=== PATIENT | male | born 1960 | race Caucasian/White ===

== ENCOUNTER 2020-12-02 12:37 | Inpatient (IN) | payer OTHER ==
[~2020-12-02] VITALS: Ht 175.3 cm; Wt 66.5 kg
[2020-12-02] VITALS (12 sets, daily range): BP systolic 109–146; BP diastolic 69–86
--- NOTE | 2020-12-02 12:51 | NUR ---
ASSUMED CARE OF PATIENT. PATIENT BIB FIRE FROM [facility] FOR RIGHT SIDED ABD PAIN. PT ALSO REPORTS LOOSE STOOL X4 WEEKS. DR DINERO IN ROOM. VS STABLE. NO ACUTE DISTRESS NOTED. CALL LIGHT IN PLACE. WILL CONTINUE TO MONITOR.
[2020-12-02] MEDS ORDERED: CHLORDIAZEPOXIDE 10 MG CAPSULE PO PRN (13:00)
[2020-12-02] MEDS ORDERED: NICOTINE 14MG/24 HR PATCH.TD24 TD ONE (13:00)
[2020-12-02] MEDS ORDERED: MORPHINE SULFATE 4 MG/ML, 1ML ONE ×2 (13:10→14:34)
[2020-12-02] MEDS ORDERED: NICOTINE 14MG/24 HR PATCH.TD24 ONE (13:10)
[2020-12-02] MEDS: MORPHINE SULFATE 4 MG/ML, 1ML IVPush PRN ×2 (13:13→14:36)
[2020-12-02] MEDS ORDERED: OMNIPAQUE 350 MG/ML, 100ML BOTTLE ONE (13:15)
--- NOTE | 2020-12-02 13:19 | NUR ---
PT REPORTS HE USUALY DRINKS A PINT A DAY OF ALOCHOL BUT STOPPED ABOUT THREE WEEKS AGO. PT WENT TO CT. VS STABLE. NO ACUTE DISTRESS NOTED. WILL CONTINUE TO MONITOR.
--- NOTE | 2020-12-02 13:24 | NUR ---
PT IN CT. REPORT GIVEN TO RUEL HART
--- NOTE | 2020-12-02 13:28 | NUR ---
DISCUSSION WITH DR DINERO REGARDING LABS FROM [facility] AND REPEAT. PLAN FOR BLOOD PRODUCT. AWAITING RETURN FROM IMAGING.
[2020-12-02] MEDS ORDERED: PANTOPRAZOLE 80 MG in SODIUM CHLORIDE 0.9% 100 ML IV SCH (13:30)
[2020-12-02] MEDS ORDERED: PANTOPRAZOLE 80 MG in SODIUM CHLORIDE 0.9% 50 ML IVPB ONE (13:30)
--- NOTE | 2020-12-02 13:45 | NUR ---
REQUEST FOR MED SENT TO PHARMACY.
[2020-12-02 14:17] LABS: BASOPHILS % (AUTO) 1 % (0-1); EOSINOPHILS % (AUTO) 0 % (1-7); LYMPHOCYTES % (AUTO) 7 % (22-44); MEAN CORPUSCULAR HGB CONC 30.9 g/dL (33.2-36.2); MEAN PLATELET VOLUME 7.2 fL (7.4-10.4); MONOCYTES % (AUTO) 7 % (2-9); NEUTROPHILS % (AUTO) 85 % (42-75); PLATELET COUNT 431 x10^3/uL (130-400); RED BLOOD COUNT 2.35 x10^6/uL (4.38-5.82); RED CELL DISTRIBUTION WIDTH 18.8 % (9.4-14.8)
[2020-12-02 14:23] LABS: ANION GAP 6 mmol/L (5-15); CALCIUM 7.7 mg/dL (8.5-10.1); CHLORIDE 107 mmol/L (98-107)
[2020-12-02 14:27] LABS: ALANINE AMINOTRANSFERASE 11 U/L (12-78); ALKALINE PHOSPHATASE 107 U/L (45-117); BILIRUBIN,TOTAL 0.3 mg/dL (0.2-1.0); CREATININE 1.12 mg/dL (0.7-1.3); TOTAL PROTEIN 6.4 g/dL (6.4-8.2)
[2020-12-02] MEDS ORDERED: CHLORDIAZEPOXIDE 10 MG CAPSULE ONE ×2 (14:34→16:53)
[2020-12-02 14:50] LABS: MD MORPH REVIEW ONLY
[2020-12-02 14:51] LABS: ANISOCYTOSIS 1+
[2020-12-02 14:52] LABS: HYPOCHROMIA 1+; MICROCYTOSIS 1+; POLYCHROMASIA 1+
[2020-12-02 14:54] LABS: <PLATELET ESTIMATE> INCREASED; <PLT MORPHOLOGY> NORMAL PLT MORPH
[2020-12-02] MEDS ORDERED: ACETAMINOPHEN 325 MG TABLET PO PRN (15:00)
[2020-12-02] MEDS ORDERED: MELATONIN 5 MG TABLET PO PRN (15:00)
--- NOTE | 2020-12-02 15:14 | NUR ---
REQUEST FOR BLOOD SENT.
[2020-12-02] MEDS ORDERED: MOVIPREP POWDER 1 PREP KIT PO STA (15:19)
--- NOTE | 2020-12-02 15:57 | NUR ---
BLOOD TRANSFUSING AT 25ML PER HOUR SLOWLY FOR FIRST 15 MINUTES. NAD NOTED IN PT. PT AWARE OF ALERT RN IF ANY SIGNS OF REACTION OCCUR.
--- NOTE | 2020-12-02 16:06 | NUR ---
DR DOMINGUEZ AT BEDSIDE TO ASSESS PT.
--- NOTE | 2020-12-02 16:39 | NUR ---
FIRST ATTEMPT TO CALL REPORT.
[2020-12-02] MEDS: CHLORDIAZEPOXIDE 10 MG CAPSULE PO SCH ×2 (16:56→21:00)
--- NOTE | 2020-12-02 16:58 | NUR ---
IVF INFUSING AT TIME OF TRANSPORT.
[2020-12-02] MEDS: NICOTINE 21 MG/24 HR PATCH.TD24 TD SCH (17:00)
[2020-12-02] MEDS ORDERED: IRON DEXTRAN COMPLEX 25 MG in SODIUM CHLORIDE 0.9% 50 ML IV ONE (17:00)
[2020-12-02] MEDS ORDERED: IRON DEXTRAN COMPLEX IV ONE (17:45)
[2020-12-02] MEDS ORDERED: SODIUM CHLORIDE 0.9% IV ONE (17:45)
[2020-12-02] MEDS ORDERED: EPINEPHRINE 1 MG/ML, 1ML IM PRN (18:30)
[2020-12-02] MEDS: LORazepam 1MG TABLET PO PRN (20:49)
[2020-12-02] MEDS: PANTOPRAZOLE 80 MG in SODIUM CHLORIDE 0.9% 100 ML IV SCH (23:31)
[2020-12-03] MEDS ORDERED: SODIUM CHLORIDE 0.9% IV ONE (01:00)
[2020-12-03] MEDS ORDERED: IRON DEXTRAN COMPLEX IV ONE (01:00)
[2020-12-03 04:12] VITALS: BP 132/78
[2020-12-03 05:10] LABS: BASOPHILS % (AUTO) 1 % (0-1); EOSINOPHILS % (AUTO) 2 % (1-7); LYMPHOCYTES % (AUTO) 13 % (22-44); MEAN CORPUSCULAR HEMOGLOBIN 26.8 pg (27.5-34.5); MEAN CORPUSCULAR HGB CONC 32.7 g/dL (33.2-36.2); MEAN PLATELET VOLUME 7.5 fL (7.4-10.4); MONOCYTES % (AUTO) 10 % (2-9); NEUTROPHILS % (AUTO) 75 % (42-75); PLATELET COUNT 390 x10^3/uL (130-400); RED BLOOD COUNT 3.04 x10^6/uL (4.38-5.82); RED CELL DISTRIBUTION WIDTH 19.8 % (9.4-14.8)
[2020-12-03] MEDS: CHLORDIAZEPOXIDE 10 MG CAPSULE PO SCH ×4 (05:16→21:01)
[2020-12-03 05:20] LABS: ALBUMIN 1.8 g/dL (3.4-5.0); ANION GAP 7 mmol/L (5-15); CALCIUM 7.8 mg/dL (8.5-10.1); CHLORIDE 114 mmol/L (98-107)
[2020-12-03 05:22] LABS: MD NO
[2020-12-03 05:24] LABS: ALANINE AMINOTRANSFERASE 12 U/L (12-78); ALKALINE PHOSPHATASE 100 U/L (45-117); BILIRUBIN,TOTAL 0.8 mg/dL (0.2-1.0); CREATININE 1.02 mg/dL (0.7-1.3); TOTAL PROTEIN 5.8 g/dL (6.4-8.2)
[2020-12-03 07:10] VITALS: BP 133/72
[2020-12-03] MEDS ORDERED: CHLORHEXIDINE 15 ML UDC ONE (07:53)
[2020-12-03] MEDS ORDERED: PROPOFOL 50 ML ONE (07:59)
[2020-12-03] MEDS ORDERED: ONDANSETRON 2MG/ML, 2ML IVPush PRN (08:00)
[2020-12-03] MEDS ORDERED: FENTANYL PF 100 MCG/2ML IV PRN (08:00)
[2020-12-03] MEDS ORDERED: ACETAMINOPHEN 325 MG TABLET PO PRN (08:00)
[2020-12-03] MEDS ORDERED: OXYcodone 5 MG/5 ML ORAL.SOL UDC PO PRN (08:00)
[2020-12-03] MEDS: PANTOPRAZOLE 80 MG in SODIUM CHLORIDE 0.9% 100 ML IV SCH ×2 (10:12→21:41)
[2020-12-03 12:16] VITALS: BP 149/62
[2020-12-03] MEDS ORDERED: PANTOPRAZOLE 80 MG in SODIUM CHLORIDE 0.9% 100 ML IV SCH (13:30)
[2020-12-03] MEDS ORDERED: OMNIPAQUE 350 MG/ML, 75ML BOTTLE ONE (15:05)
[2020-12-03] MEDS: NICOTINE 21 MG/24 HR PATCH.TD24 TD SCH (16:38)
[2020-12-03 16:40] VITALS: BP 162/87
[2020-12-03] MEDS ORDERED: GADOTERATE 7.5 MMOL/15ML SYR ONE (18:39)
[2020-12-03] MEDS: ONDANSETRON ODT 4 MG PO PRN (19:21)
[2020-12-03 21:54] VITALS: BP 160/85
[2020-12-04] MEDS: LORazepam 1MG TABLET PO PRN (02:38)
[2020-12-04] MEDS: ONDANSETRON ODT 4 MG PO PRN (02:38)
[2020-12-04 02:42] VITALS: BP 155/80
[2020-12-04] MEDS: CHLORDIAZEPOXIDE 10 MG CAPSULE PO SCH ×4 (05:51→20:57)
[2020-12-04 08:46] VITALS: BP 161/94
[2020-12-04] MEDS: PANTOPRAZOLE 80 MG in SODIUM CHLORIDE 0.9% 100 ML IV SCH ×2 (09:55→19:58)
[2020-12-04] MEDS: ALBUMIN HUMAN 25% 100 ML IV SCH ×2 (12:25→18:00)
[2020-12-04 13:16] VITALS: BP 157/98
[2020-12-04] MEDS: NEOMYCIN SULFATE 500 MG TABLET PO SCH ×2 (13:58→15:21)
[2020-12-04] MEDS: metroNIDAZOLE 500 MG TABLET PO SCH ×2 (13:58→15:21)
[2020-12-04 16:51] VITALS: BP 153/90
[2020-12-04] MEDS: NICOTINE 21 MG/24 HR PATCH.TD24 TD SCH (18:00)
[2020-12-04 19:54] VITALS: BP 157/86
[2020-12-05] MEDS: NEOMYCIN SULFATE 500 MG TABLET PO SCH
[2020-12-05] MEDS: metroNIDAZOLE 500 MG TABLET PO SCH
[2020-12-05] MEDS: ALBUMIN HUMAN 25% 100 ML IV SCH ×2 (00:01→06:26)
[2020-12-05 00:11] VITALS: BP 140/85
[2020-12-05 03:36] VITALS: BP 149/89
[2020-12-05] MEDS: PANTOPRAZOLE 80 MG in SODIUM CHLORIDE 0.9% 100 ML IV SCH ×2 (05:53→15:33)
[2020-12-05] MEDS: CHLORDIAZEPOXIDE 10 MG CAPSULE PO SCH ×3 (06:26→15:34)
[2020-12-05 08:30] VITALS: BP 114/74
[2020-12-05] MEDS ORDERED: CHLORHEXIDINE 15 ML UDC ONE (14:06)
[2020-12-05] MEDS ORDERED: BUPIVACAINE/PF 0.5% ONE (14:24)
[2020-12-05] MEDS ORDERED: EPINEPHRINE 1 MG/ML, 1ML ONE (14:24)
[2020-12-05] MEDS ORDERED: CHLORHEXIDINE 15 ML UDC PO ONE (14:30)
[2020-12-05] MEDS ORDERED: MIDAZOLAM 1 MG/ML, 2ML ONE (15:12)
[2020-12-05] MEDS ORDERED: FENTANYL PF 250 MCG/5ML ONE (15:12)
[2020-12-05] MEDS ORDERED: DIPHENHYDRAMINE 50 MG/ML, 1ML IVPush PRN ×2 (15:30→23:30)
[2020-12-05] MEDS ORDERED: HYDROmorphone 1 MG/ML, 1ML INJ IVPush PRN (15:30)
[2020-12-05] MEDS ORDERED: HALOPERIDOL 5 MG/ML IV PRN (15:30)
[2020-12-05] MEDS ORDERED: LABETALOL 5MG/ML, 20ML IV PRN (15:30)
[2020-12-05] MEDS ORDERED: OXYcodone 5 MG/5 ML ORAL.SOL UDC PO PRN (15:30)
[2020-12-05] MEDS ORDERED: FENTANYL PF 100 MCG/2ML IV PRN (15:30)
[2020-12-05] MEDS ORDERED: PROMETHAZINE 25 MG/ML, 1ML IVPush PRN (15:30)
[2020-12-05] MEDS ORDERED: MEPERIDINE/PF 25MG/0.5ML IVPush PRN (15:30)
[2020-12-05] MEDS ORDERED: hydrALAzine 20 MG/ML, 1ML IV PRN (15:30)
[2020-12-05] MEDS ORDERED: CEFOTETAN 2 GM ONE ×2 (15:31)
[2020-12-05] MEDS ORDERED: HYDROmorphone 1 MG/ML, 1ML INJ ONE (18:16)
[2020-12-05] MEDS ORDERED: FENTANYL PF 100 MCG/2ML ONE (19:31)
[2020-12-05] MEDS ORDERED: NEOSTIGMINE 1 MG/ML, 10ML ONE (19:59)
[2020-12-05] MEDS ORDERED: CEFAZOLIN 1,000 MG ONE (19:59)
[2020-12-05] MEDS ORDERED: PROPOFOL 10 MG/ML, 20ML ONE (19:59)
[2020-12-05] MEDS ORDERED: SUCCINYLCHOLINE 20 MG/ML, 10ML ONE (19:59)
[2020-12-05] MEDS ORDERED: ONDANSETRON 2MG/ML, 2ML ONE (19:59)
[2020-12-05] MEDS ORDERED: GLYCOPYRROLATE 0.2MG/1ML, 5ML ONE (19:59)
[2020-12-05] MEDS ORDERED: ROCURONIUM 10MG/ML,5ML ONE (19:59)
[2020-12-05 23:11] VITALS: BP 128/90
[2020-12-05] MEDS ORDERED: DEXAMETHASONE 4 MG/ML, 1ML IVPush PRN (23:30)
[2020-12-05] MEDS ORDERED: ONDANSETRON 2MG/ML, 2ML IV PRN (23:30)
[2020-12-05] MEDS ORDERED: TRAZODONE 50MG TABLET PO PRN (23:30)
[2020-12-05] MEDS ORDERED: DIPHENHYDRAMINE 25 MG CAPSULE PO PRN (23:30)
[2020-12-05] MEDS ORDERED: LORazepam 1MG TABLET PO PRN (23:30)
[2020-12-05] MEDS ORDERED: HALOPERIDOL 5 MG/ML IVPush PRN (23:30)
[2020-12-05] MEDS ORDERED: SCOPOLAMINE PATCH, 1.5MG PATCH.TD72 TD PRN (23:30)
[2020-12-05] MEDS: ACETAMINOPHEN 500 MG TABLET PO SCH (23:30)
[2020-12-05] MEDS: NICOTINE 21 MG/24 HR PATCH.TD24 TD SCH (23:58)
[2020-12-06] MEDS ORDERED: LACTATED RINGERS 1,000 ML IVBOLUS ONE
[2020-12-06] MEDS: KETOROLAC 30 MG/1 ML IVPush SCH ×5 (00:54→23:40)
[2020-12-06] MEDS: PANTOPRAZOLE 80 MG in SODIUM CHLORIDE 0.9% 100 ML IV SCH ×3 (00:56→21:07)
[2020-12-06 02:40] VITALS: BP 129/76
[2020-12-06 03:40] LABS: ANION GAP 9 mmol/L (5-15); CALCIUM 8.1 mg/dL (8.5-10.1); CHLORIDE 111 mmol/L (98-107); CREATININE 1.25 mg/dL (0.7-1.3)
[2020-12-06 03:47] LABS: BASOPHILS % (AUTO) 0 % (0-1); EOSINOPHILS % (AUTO) 0 % (1-7); LYMPHOCYTES % (AUTO) 2 % (22-44); MD NO; MEAN CORPUSCULAR HGB CONC 30.5 g/dL (33.2-36.2); MEAN PLATELET VOLUME 8.2 fL (7.4-10.4); MONOCYTES % (AUTO) 3 % (2-9); NEUTROPHILS % (AUTO) 95 % (42-75); PLATELET COUNT 327 x10^3/uL (130-400); RED BLOOD COUNT 3.39 x10^6/uL (4.38-5.82); RED CELL DISTRIBUTION WIDTH 21.2 % (9.4-14.8)
[2020-12-06] MEDS: ACETAMINOPHEN 500 MG TABLET PO SCH ×4 (05:30→23:30)
[2020-12-06] MEDS: LACTATED RINGERS 1,000 ML IV SCH ×2 (05:33→16:35)
[2020-12-06 06:59] VITALS: BP 147/87
[2020-12-06] MEDS ORDERED: ENOXAPARIN 40 MG/0.4 ML SQ SCH (09:00)
[2020-12-06] MEDS ORDERED: TPN PER PHARMACY MC SCH (10:00)
[2020-12-06] MEDS ORDERED: ACETAMINOPHEN 650 MG SUPP PR PRN (10:00)
[2020-12-06] MEDS ORDERED: LACTATED RINGERS 1,000 ML IV ONE (10:00)
[2020-12-06] MEDS ORDERED: MAGNESIUM SULFATE PMX 2GM/50ML 50 ML IV ONE (10:00)
[2020-12-06] MEDS ORDERED: ALBUMIN HUMAN 25% 100 ML IV SCH ×2 (10:00)
[2020-12-06 10:10] LABS: PREALBUMIN 4.9 mg/dL (20.0-40.0)
[2020-12-06 13:34] VITALS: BP 137/93
[2020-12-06] MEDS ORDERED: AMINO ACID 15% IV SCH (17:00)
[2020-12-06] MEDS ORDERED: [UNRECOGNIZED DRUG - OTHER] IV SCH (17:00)
[2020-12-06] MEDS ORDERED: FAT EMUL IV SCH (17:00)
[2020-12-06] MEDS ORDERED: DEXTROSE 70% IV SCH (17:00)
[2020-12-06] MEDS ORDERED: DEXTROSE 50%, 50ML SYRINGE IVPush PRN (17:00)
[2020-12-06] MEDS ORDERED: SMOF TPN IV SCH (17:00)
[2020-12-06] MEDS ORDERED: DEXTROSE 10% 500 ML IV PRN (17:00)
[2020-12-06 19:45] VITALS: BP 118/85
[2020-12-06] MEDS: INSULIN REGULAR LOW DOSE Q6H X 48HRS SQ-INSULIN SCH (21:00)
[2020-12-07] VITALS (7 sets, daily range): BP systolic 105–134; BP diastolic 71–84
[2020-12-07] MEDS: NICOTINE 21 MG/24 HR PATCH.TD24 TD SCH (00:23)
[2020-12-07] MEDS: LACTATED RINGERS 1,000 ML IV SCH ×3 (00:25→23:15)
[2020-12-07] MEDS: INSULIN REGULAR LOW DOSE Q6H X 48HRS SQ-INSULIN SCH ×4 (03:00→20:19)
[2020-12-07 04:55] LABS: BASOPHILS % (AUTO) 1 % (0-1); EOSINOPHILS % (AUTO) 1 % (1-7); LYMPHOCYTES % (AUTO) 7 % (22-44); MEAN CORPUSCULAR HEMOGLOBIN 26.9 pg (27.5-34.5); MEAN CORPUSCULAR HGB CONC 31.5 g/dL (33.2-36.2); MEAN PLATELET VOLUME 8.6 fL (7.4-10.4); MONOCYTES % (AUTO) 6 % (2-9); NEUTROPHILS % (AUTO) 85 % (42-75); PLATELET COUNT 226 x10^3/uL (130-400); RED BLOOD COUNT 2.05 x10^6/uL (4.38-5.82); RED CELL DISTRIBUTION WIDTH 21.8 % (9.4-14.8)
[2020-12-07 05:02] LABS: MD NO
[2020-12-07] MEDS: ACETAMINOPHEN 500 MG TABLET PO SCH ×4 (05:30→23:15)
[2020-12-07] MEDS: KETOROLAC 30 MG/1 ML IVPush SCH ×4 (05:42→23:14)
[2020-12-07] MEDS: PANTOPRAZOLE 80 MG in SODIUM CHLORIDE 0.9% 100 ML IV SCH ×2 (06:31→18:14)
[2020-12-07 06:38] LABS: BASOPHILS % (AUTO) 0 % (0-1); EOSINOPHILS % (AUTO) 1 % (1-7); LYMPHOCYTES % (AUTO) 8 % (22-44); MEAN CORPUSCULAR HEMOGLOBIN 26.7 pg (27.5-34.5); MEAN CORPUSCULAR HGB CONC 31.7 g/dL (33.2-36.2); MEAN PLATELET VOLUME 7.7 fL (7.4-10.4); MONOCYTES % (AUTO) 8 % (2-9); NEUTROPHILS % (AUTO) 84 % (42-75); PLATELET COUNT 268 x10^3/uL (130-400); RED BLOOD COUNT 2.58 x10^6/uL (4.38-5.82)
[2020-12-07 06:43] LABS: MD NO
[2020-12-07 06:51] LABS: ALANINE AMINOTRANSFERASE 15 U/L (12-78); ALBUMIN 1.9 g/dL (3.4-5.0); ANION GAP 5 mmol/L (5-15); CALCIUM 7.9 mg/dL (8.5-10.1); CHLORIDE 112 mmol/L (98-107); CREATININE 1.72 mg/dL (0.7-1.3)
[2020-12-07 06:53] LABS: ALKALINE PHOSPHATASE 58 U/L (45-117); BILIRUBIN,TOTAL 0.2 mg/dL (0.2-1.0); TOTAL PROTEIN 4.9 g/dL (6.4-8.2)
[2020-12-07] MEDS ORDERED: NS + 20MEQ KCL 1,000 ML IV SCH (14:00)
[2020-12-07] MEDS ORDERED: FAT EMUL IV SCH (18:00)
[2020-12-07] MEDS ORDERED: SMOF TPN IV SCH (18:00)
[2020-12-07] MEDS ORDERED: AMINO ACID 15% IV SCH (18:00)
[2020-12-07] MEDS ORDERED: [UNRECOGNIZED DRUG - OTHER] IV SCH (18:00)
[2020-12-07] MEDS ORDERED: DEXTROSE 70% IV SCH (18:00)
[2020-12-08] MEDS: NICOTINE 21 MG/24 HR PATCH.TD24 TD SCH (00:42)
[2020-12-08] MEDS: INSULIN REGULAR LOW DOSE Q6H X 48HRS SQ-INSULIN SCH ×3 (03:00→15:00)
[2020-12-08 03:05] VITALS: BP 143/87
[2020-12-08] MEDS: PANTOPRAZOLE 80 MG in SODIUM CHLORIDE 0.9% 100 ML IV SCH (04:08)
[2020-12-08] MEDS: ACETAMINOPHEN 500 MG TABLET PO SCH ×4 (05:30→23:30)
[2020-12-08] MEDS: KETOROLAC 30 MG/1 ML IVPush SCH ×3 (05:30→16:59)
[2020-12-08 06:12] LABS: BASOPHILS % (AUTO) 0 % (0-1); EOSINOPHILS % (AUTO) 2 % (1-7); LYMPHOCYTES % (AUTO) 8 % (22-44); MEAN CORPUSCULAR HEMOGLOBIN 26.9 pg (27.5-34.5); MEAN CORPUSCULAR HGB CONC 32.1 g/dL (33.2-36.2); MEAN PLATELET VOLUME 9.1 fL (7.4-10.4); MONOCYTES % (AUTO) 7 % (2-9); NEUTROPHILS % (AUTO) 83 % (42-75); PLATELET COUNT 236 x10^3/uL (130-400); RED BLOOD COUNT 2.69 x10^6/uL (4.38-5.82); RED CELL DISTRIBUTION WIDTH 21.2 % (9.4-14.8)
[2020-12-08 06:21] LABS: ANION GAP 2 mmol/L (5-15); CALCIUM 7.8 mg/dL (8.5-10.1); CHLORIDE 113 mmol/L (98-107); CREATININE 1.42 mg/dL (0.7-1.3); MD NO
[2020-12-08 07:36] VITALS: BP 147/90
[2020-12-08] MEDS: IRON SUCROSE COMPLEX 100MG/5ML IV SCH (11:03)
[2020-12-08 13:46] VITALS: BP 144/82
[2020-12-08] MEDS: LORazepam 2 MG/ML, 1ML IVPush PRN (14:26)
[2020-12-08 15:42] LABS: BASOPHILS % (AUTO) 1 % (0-1); EOSINOPHILS % (AUTO) 1 % (1-7); LYMPHOCYTES % (AUTO) 7 % (22-44); MEAN CORPUSCULAR HEMOGLOBIN 30.1 pg (27.5-34.5); MEAN CORPUSCULAR HGB CONC 31.4 g/dL (33.2-36.2); MEAN PLATELET VOLUME 9.5 fL (7.4-10.4); MONOCYTES % (AUTO) 6 % (2-9); NEUTROPHILS % (AUTO) 85 % (42-75); PLATELET COUNT 235 x10^3/uL (130-400); RED BLOOD COUNT 2.52 x10^6/uL (4.38-5.82); RED CELL DISTRIBUTION WIDTH 22.6 % (9.4-14.8)
[2020-12-08 15:43] LABS: MD NO
[2020-12-08] MEDS ORDERED: SMOF TPN IV SCH (17:00)
[2020-12-08] MEDS ORDERED: FAT EMUL IV SCH (17:00)
[2020-12-08] MEDS ORDERED: [UNRECOGNIZED DRUG - OTHER] IV SCH (17:00)
[2020-12-08] MEDS ORDERED: DEXTROSE 70% IV SCH (17:00)
[2020-12-08] MEDS ORDERED: AMINO ACID 15% IV SCH (17:00)
[2020-12-08] MEDS: FILTER, DISP 1.2 MICRON FOR TPN/PVN IV PRN (17:15)
[2020-12-08 19:35] VITALS: BP 165/88
[2020-12-08] MEDS: PANTOPRAZOLE 40 MG IV IVPush SCH (20:46)
[2020-12-09 00:12] VITALS: BP 146/85
[2020-12-09] MEDS: NICOTINE 21 MG/24 HR PATCH.TD24 TD SCH (00:30)
[2020-12-09] MEDS: LORazepam 2 MG/ML, 1ML IVPush PRN ×2 (00:30→19:09)
[2020-12-09] MEDS: ACETAMINOPHEN 500 MG TABLET PO SCH (05:30)
[2020-12-09 06:07] LABS: BASOPHILS % (AUTO) 0 % (0-1); EOSINOPHILS % (AUTO) 1 % (1-7); LYMPHOCYTES % (AUTO) 7 % (22-44); MEAN CORPUSCULAR HEMOGLOBIN 26.5 pg (27.5-34.5); MEAN CORPUSCULAR HGB CONC 31.7 g/dL (33.2-36.2); MEAN PLATELET VOLUME 8.9 fL (7.4-10.4); MONOCYTES % (AUTO) 5 % (2-9); NEUTROPHILS % (AUTO) 87 % (42-75); PLATELET COUNT 274 x10^3/uL (130-400); RED BLOOD COUNT 3.13 x10^6/uL (4.38-5.82); RED CELL DISTRIBUTION WIDTH 22.3 % (9.4-14.8)
[2020-12-09 06:15] LABS: ALANINE AMINOTRANSFERASE 14 U/L (12-78); ANION GAP 2 mmol/L (5-15); CALCIUM 8.6 mg/dL (8.5-10.1); CHLORIDE 111 mmol/L (98-107); CREATININE 1.19 mg/dL (0.7-1.3)
[2020-12-09 06:17] LABS: ALKALINE PHOSPHATASE 66 U/L (45-117); BILIRUBIN,TOTAL 0.2 mg/dL (0.2-1.0); TOTAL PROTEIN 5.4 g/dL (6.4-8.2)
[2020-12-09 06:46] LABS: MD SCAN
[2020-12-09 07:13] VITALS: BP 142/94
[2020-12-09] MEDS: INSULIN REGULAR LOW DOSE QDAY SQ-INSULIN SCH (07:21)
[2020-12-09] MEDS: PANTOPRAZOLE 40 MG IV IVPush SCH ×2 (08:25→21:06)
[2020-12-09] MEDS: IRON SUCROSE COMPLEX 100MG/5ML IV SCH (08:35)
[2020-12-09 12:23] VITALS: BP 134/84
[2020-12-09] MEDS ORDERED: CEFTRIAXONE 1,000 MG IM SCH (12:30)
[2020-12-09] MEDS: METRONIDAZOLE PMX 500MG/100ML 100 ML IV SCH ×2 (13:05→21:06)
[2020-12-09] MEDS: LACTATED RINGERS 1,000 ML IV SCH (13:07)
[2020-12-09] MEDS: CEFTRIAXONE 1,000 MG in DEXTROSE 5% 50 ML IVPB SCH (15:12)
[2020-12-09] MEDS ORDERED: [UNRECOGNIZED DRUG - OTHER] IV SCH (17:00)
[2020-12-09] MEDS ORDERED: AMINO ACID 15% IV SCH (17:00)
[2020-12-09] MEDS ORDERED: FAT EMUL IV SCH (17:00)
[2020-12-09] MEDS ORDERED: DEXTROSE 70% IV SCH (17:00)
[2020-12-09] MEDS ORDERED: SMOF TPN IV SCH (17:00)
[2020-12-09] MEDS: FILTER, DISP 1.2 MICRON FOR TPN/PVN IV PRN (17:21)
[2020-12-09 19:01] VITALS: BP 157/88
[2020-12-10] MEDS: NICOTINE 21 MG/24 HR PATCH.TD24 TD SCH (00:24)
[2020-12-10 00:54] VITALS: BP 140/88
[2020-12-10] MEDS: METRONIDAZOLE PMX 500MG/100ML 100 ML IV SCH ×3 (06:00→20:11)
[2020-12-10 06:16] LABS: ALANINE AMINOTRANSFERASE 13 U/L (12-78); ALBUMIN 1.6 g/dL (3.4-5.0); ANION GAP 3 mmol/L (5-15); CALCIUM 7.9 mg/dL (8.5-10.1); CHLORIDE 110 mmol/L (98-107)
[2020-12-10 06:22] LABS: ALKALINE PHOSPHATASE 71 U/L (45-117); BILIRUBIN,TOTAL 0.2 mg/dL (0.2-1.0)
[2020-12-10 06:23] LABS: MEAN CORPUSCULAR HEMOGLOBIN 26.4 pg (27.5-34.5); MEAN CORPUSCULAR HGB CONC 31.3 g/dL (33.2-36.2); MEAN PLATELET VOLUME 9.2 fL (7.4-10.4); PLATELET COUNT 277 x10^3/uL (130-400); RED BLOOD COUNT 2.93 x10^6/uL (4.38-5.82); RED CELL DISTRIBUTION WIDTH 22.8 % (9.4-14.8)
[2020-12-10 06:49] LABS: MD YES
[2020-12-10 06:50] LABS: BAND#(MANUAL) 0.81 x10^3/uL; BANDS%(MANUAL) 4 % (0-7); EOS% (MANUAL) 1 % (1-7); LYMPH#(MANUAL) 1.21 x10^3/uL (1-3.4); LYMPHS% (MANUAL) 6 % (22-44); MONOS#(MANUAL) 0.81 x10^3/uL (0.3-2.7); MONOS% (MANUAL) 4 % (2-9); SEG#(MANUAL) 17.17 x10^3/uL (1.8-6.8); SEGS% (MANUAL) 85 % (42-75)
[2020-12-10 06:51] LABS: <PLATELET ESTIMATE> ADEQUATE; <PLT MORPHOLOGY> NORMAL PLT MORPH; OVALOCYTES 1+
[2020-12-10] MEDS: INSULIN REGULAR LOW DOSE QDAY SQ-INSULIN SCH (07:29)
[2020-12-10 07:48] VITALS: BP 126/86
[2020-12-10] MEDS ORDERED: ACETAMINOPHEN 650 MG SUPP PR PRN (09:00)
[2020-12-10] MEDS: PANTOPRAZOLE 40 MG IV IVPush SCH ×2 (09:51→20:11)
[2020-12-10] MEDS: IRON SUCROSE COMPLEX 100MG/5ML IV SCH (09:51)
[2020-12-10] MEDS: ENOXAPARIN 40 MG/0.4 ML SQ SCH (09:52)
[2020-12-10] MEDS ORDERED: OMNIPAQUE 350 MG/ML, 100ML BOTTLE ONE ×2 (10:24→10:26)
[2020-12-10] MEDS: FERROUS SULFATE 325 MG TABLET PO SCH (12:00)
[2020-12-10 14:00] VITALS: BP 134/92
[2020-12-10] MEDS: CEFTRIAXONE 1,000 MG in DEXTROSE 5% 50 ML IVPB SCH (15:56)
[2020-12-10] MEDS ORDERED: AMINO ACID 15% IV SCH (17:00)
[2020-12-10] MEDS ORDERED: FAT EMUL IV SCH (17:00)
[2020-12-10] MEDS ORDERED: SMOF TPN IV SCH (17:00)
[2020-12-10] MEDS ORDERED: DEXTROSE 70% IV SCH (17:00)
[2020-12-10] MEDS ORDERED: [UNRECOGNIZED DRUG - OTHER] IV SCH (17:00)
[2020-12-10] MEDS ORDERED: MORPHINE SULFATE 4 MG/ML, 1ML IV PRN (18:30)
[2020-12-10] MEDS: HYDROcodone/APAP 5/325 TABLET PO PRN (18:34)
[2020-12-10 19:03] VITALS: BP 144/87
[2020-12-10 19:16] LABS: CLOSTRIDIUM DIFFICILE ANTIGEN NEGATIVE; CLOSTRIDIUM DIFFICILE TOXIN NEGATIVE (Negative)
[2020-12-11] MEDS: NICOTINE 21 MG/24 HR PATCH.TD24 TD SCH ×2 (01:01→23:13)
[2020-12-11 01:55] VITALS: BP 150/82
[2020-12-11] MEDS: METRONIDAZOLE PMX 500MG/100ML 100 ML IV SCH ×3 (04:31→20:29)
[2020-12-11 04:51] LABS: MEAN CORPUSCULAR HEMOGLOBIN 26.7 pg (27.5-34.5); MEAN CORPUSCULAR HGB CONC 31.5 g/dL (33.2-36.2); MEAN PLATELET VOLUME 9.5 fL (7.4-10.4); PLATELET COUNT 246 x10^3/uL (130-400); RED BLOOD COUNT 2.98 x10^6/uL (4.38-5.82); RED CELL DISTRIBUTION WIDTH 22.8 % (9.4-14.8)
[2020-12-11 05:04] LABS: ALANINE AMINOTRANSFERASE 13 U/L (12-78); ALBUMIN 1.7 g/dL (3.4-5.0); ANION GAP 2 mmol/L (5-15); CALCIUM 8.2 mg/dL (8.5-10.1); CHLORIDE 108 mmol/L (98-107); CREATININE 0.85 mg/dL (0.7-1.3)
[2020-12-11 05:11] LABS: ALKALINE PHOSPHATASE 74 U/L (45-117); BILIRUBIN,TOTAL 0.1 mg/dL (0.2-1.0); PREALBUMIN 8.2 mg/dL (20.0-40.0); TOTAL PROTEIN 5.4 g/dL (6.4-8.2); TRIGLYCERIDES 40 mg/dL (50-200)
[2020-12-11 05:48] LABS: MD YES
[2020-12-11 05:50] LABS: LYMPH#(MANUAL) 0.52 x10^3/uL (1-3.4); LYMPHS% (MANUAL) 3 % (22-44); MONOS#(MANUAL) 1.56 x10^3/uL (0.3-2.7); MONOS% (MANUAL) 9 % (2-9); SEG#(MANUAL) 15.22 x10^3/uL (1.8-6.8); SEGS% (MANUAL) 88 % (42-75)
[2020-12-11 05:51] LABS: OVALOCYTES 1+
[2020-12-11 05:52] LABS: <PLATELET ESTIMATE> ADEQUATE; <PLT MORPHOLOGY> NORMAL PLT MORPH; ANISOCYTOSIS 1+; HYPOCHROMIA 1+
[2020-12-11 06:36] VITALS: BP 145/87
[2020-12-11] MEDS: INSULIN REGULAR LOW DOSE QDAY SQ-INSULIN SCH (07:24)
[2020-12-11] MEDS: PANTOPRAZOLE 40 MG IV IVPush SCH ×2 (10:12→20:29)
[2020-12-11] MEDS: ENOXAPARIN 40 MG/0.4 ML SQ SCH (10:18)
[2020-12-11] MEDS ORDERED: MAGNESIUM SULFATE PMX 2GM/50ML 50 ML IV ONE (10:30)
[2020-12-11 12:26] VITALS: BP 156/84
[2020-12-11] MEDS: HYDROcodone/APAP 5/325 TABLET PO PRN ×2 (14:35→15:59)
[2020-12-11] MEDS: CEFTRIAXONE 1,000 MG in DEXTROSE 5% 50 ML IVPB SCH (15:50)
[2020-12-11] MEDS ORDERED: [UNRECOGNIZED DRUG - OTHER] IV SCH (17:00)
[2020-12-11] MEDS ORDERED: AMINO ACID 15% IV SCH (17:00)
[2020-12-11] MEDS ORDERED: SMOF TPN IV SCH (17:00)
[2020-12-11] MEDS ORDERED: DEXTROSE 70% IV SCH (17:00)
[2020-12-11] MEDS ORDERED: FAT EMUL IV SCH (17:00)
[2020-12-11 18:39] VITALS: BP 136/87
[2020-12-12 01:35] VITALS: BP 123/81
[2020-12-12] MEDS: LACTATED RINGERS 1,000 ML IV SCH (04:20)
[2020-12-12 04:26] LABS: MEAN CORPUSCULAR HEMOGLOBIN 27.1 pg (27.5-34.5); MEAN CORPUSCULAR HGB CONC 31.8 g/dL (33.2-36.2); MEAN PLATELET VOLUME 9.4 fL (7.4-10.4); PLATELET COUNT 266 x10^3/uL (130-400); RED CELL DISTRIBUTION WIDTH 23.5 % (9.4-14.8)
[2020-12-12 04:36] LABS: ALANINE AMINOTRANSFERASE 9 U/L (12-78); ALBUMIN 1.7 g/dL (3.4-5.0); ANION GAP 1 mmol/L (5-15); CALCIUM 7.9 mg/dL (8.5-10.1); CHLORIDE 108 mmol/L (98-107); CREATININE 0.74 mg/dL (0.7-1.3)
[2020-12-12 04:38] LABS: ALKALINE PHOSPHATASE 65 U/L (45-117); BILIRUBIN,TOTAL 0.1 mg/dL (0.2-1.0); TOTAL PROTEIN 5.3 g/dL (6.4-8.2)
[2020-12-12 04:56] LABS: BAND#(MANUAL) 0.21 x10^3/uL; BANDS%(MANUAL) 2 % (0-7); EOS#(MANUAL) 0.21 x10^3/uL (0.0-0.4); EOS% (MANUAL) 2 % (1-7); LYMPH#(MANUAL) 0.93 x10^3/uL (1-3.4); LYMPHS% (MANUAL) 9 % (22-44); MD YES; MONOS#(MANUAL) 0.62 x10^3/uL (0.3-2.7); MONOS% (MANUAL) 6 % (2-9); MYELOCYTES% (MANUAL) 1 % (0-0); SEG#(MANUAL) 8.24 x10^3/uL (1.8-6.8); SEGS% (MANUAL) 80 % (42-75)
[2020-12-12 04:57] LABS: ANISOCYTOSIS 1+; MICROCYTOSIS 1+; OVALOCYTES 1+; PMNS WITH VACUOLES 1+
[2020-12-12 04:58] LABS: <PLATELET ESTIMATE> ADEQUATE; <PLT MORPHOLOGY> NORMAL PLT MORPH
[2020-12-12] MEDS: METRONIDAZOLE PMX 500MG/100ML 100 ML IV SCH ×3 (05:07→21:13)
[2020-12-12 07:04] VITALS: BP 142/93
[2020-12-12] MEDS: HYDROcodone/APAP 5/325 TABLET PO PRN ×2 (07:29→13:06)
[2020-12-12] MEDS: INSULIN REGULAR LOW DOSE QDAY SQ-INSULIN SCH (07:30)
[2020-12-12] MEDS: PANTOPRAZOLE 40 MG IV IVPush SCH (08:40)
[2020-12-12] MEDS: FERROUS SULFATE 325 MG TABLET PO SCH (08:41)
[2020-12-12] MEDS: ENOXAPARIN 40 MG/0.4 ML SQ SCH (08:53)
[2020-12-12 13:18] VITALS: BP 134/81
[2020-12-12] MEDS: CEFTRIAXONE 1,000 MG in DEXTROSE 5% 50 ML IVPB SCH (16:24)
[2020-12-12] MEDS ORDERED: [UNRECOGNIZED DRUG - OTHER] IV SCH (17:00)
[2020-12-12] MEDS ORDERED: AMINO ACIDS 10% IV SCH (17:00)
[2020-12-12] MEDS ORDERED: DEXTROSE 70% IV SCH (17:00)
[2020-12-12] MEDS ORDERED: SMOF TPN IV SCH (17:00)
[2020-12-12] MEDS ORDERED: FAT EMUL IV SCH (17:00)
[2020-12-12 18:39] VITALS: BP 124/76
[2020-12-13 01:54] VITALS: BP 156/90
[2020-12-13 04:00] LABS: MEAN CORPUSCULAR HGB CONC 31.8 g/dL (33.2-36.2); MEAN PLATELET VOLUME 9.8 fL (7.4-10.4); PLATELET COUNT 263 x10^3/uL (130-400); RED BLOOD COUNT 3.15 x10^6/uL (4.38-5.82); RED CELL DISTRIBUTION WIDTH 23.8 % (9.4-14.8)
[2020-12-13 04:07] LABS: ALANINE AMINOTRANSFERASE 9 U/L (12-78); ALBUMIN 1.6 g/dL (3.4-5.0); ANION GAP 4 mmol/L (5-15); CALCIUM 7.8 mg/dL (8.5-10.1); CHLORIDE 109 mmol/L (98-107); CREATININE 0.67 mg/dL (0.7-1.3)
[2020-12-13 04:09] LABS: ALKALINE PHOSPHATASE 63 U/L (45-117); BILIRUBIN,TOTAL 0.1 mg/dL (0.2-1.0); TOTAL PROTEIN 5.4 g/dL (6.4-8.2)
[2020-12-13 04:30] LABS: MD YES
[2020-12-13 04:34] LABS: BASOS#(MANUAL) 0.09 x10^3/uL (0-0.1); BASOS% (MANUAL) 1 % (0-1); LYMPH#(MANUAL) 0.65 x10^3/uL (1-3.4); LYMPHS% (MANUAL) 7 % (22-44); MONOS#(MANUAL) 0.84 x10^3/uL (0.3-2.7); MONOS% (MANUAL) 9 % (2-9); SEG#(MANUAL) 7.72 x10^3/uL (1.8-6.8); SEGS% (MANUAL) 83 % (42-75)
[2020-12-13 04:35] LABS: ANISOCYTOSIS 1+; OVALOCYTES 1+
[2020-12-13 04:36] LABS: MICROCYTOSIS 1+
[2020-12-13 04:37] LABS: <PLATELET ESTIMATE> ADEQUATE; <PLT MORPHOLOGY> NORMAL PLT MORPH; CRENATED 1+
[2020-12-13] MEDS: METRONIDAZOLE PMX 500MG/100ML 100 ML IV SCH ×3 (05:11→20:31)
[2020-12-13] MEDS: PANTOPRAZOLE 40MG TABLET PO SCH (05:15)
[2020-12-13 07:03] VITALS: BP 151/88
[2020-12-13] MEDS: INSULIN REGULAR LOW DOSE QDAY SQ-INSULIN SCH (07:07)
[2020-12-13] MEDS: HYDROcodone/APAP 5/325 TABLET PO PRN ×2 (07:24→17:07)
[2020-12-13] MEDS: ENOXAPARIN 40 MG/0.4 ML SQ SCH (08:24)
[2020-12-13] MEDS: NICOTINE 21 MG/24 HR PATCH.TD24 TD SCH ×2 (08:26)
[2020-12-13 12:57] VITALS: BP 134/85
[2020-12-13] MEDS: CEFTRIAXONE 1,000 MG in DEXTROSE 5% 50 ML IVPB SCH (15:51)
[2020-12-13] MEDS ORDERED: [UNRECOGNIZED DRUG - OTHER] IV SCH (17:00)
[2020-12-13] MEDS ORDERED: FAT EMUL IV SCH (17:00)
[2020-12-13] MEDS ORDERED: SMOF TPN IV SCH (17:00)
[2020-12-13] MEDS ORDERED: FILTER, DISP 1.2 MICRON FOR TPN/PVN IV PRN (17:00)
[2020-12-13] MEDS ORDERED: DEXTROSE 70% IV SCH (17:00)
[2020-12-13] MEDS ORDERED: AMINO ACIDS 10% IV SCH (17:00)
[2020-12-13 18:33] VITALS: BP 146/88
[2020-12-14] MEDS: CALCIUM CARBONATE 500 MG TAB.CHEW PO PRN ×2 (00:09→18:18)
[2020-12-14 00:10] VITALS: BP 139/80
[2020-12-14 04:00] LABS: MEAN CORPUSCULAR HEMOGLOBIN 27.4 pg (27.5-34.5); MEAN CORPUSCULAR HGB CONC 32.1 g/dL (33.2-36.2); MEAN PLATELET VOLUME 10.1 fL (7.4-10.4); PLATELET COUNT 277 x10^3/uL (130-400); RED BLOOD COUNT 3.31 x10^6/uL (4.38-5.82); RED CELL DISTRIBUTION WIDTH 23.9 % (9.4-14.8)
[2020-12-14 04:02] LABS: MD YES
[2020-12-14 04:07] LABS: ANION GAP 6 mmol/L (5-15); CALCIUM 8.2 mg/dL (8.5-10.1); CHLORIDE 109 mmol/L (98-107); CREATININE 0.57 mg/dL (0.7-1.3)
[2020-12-14] MEDS: PANTOPRAZOLE 40MG TABLET PO SCH (04:56)
[2020-12-14] MEDS: METRONIDAZOLE PMX 500MG/100ML 100 ML IV SCH ×3 (04:57→21:09)
[2020-12-14 05:42] LABS: BASOS% (MANUAL) 1 % (0-1); EOS% (MANUAL) 1 % (1-7); LYMPH#(MANUAL) 1.41 x10^3/uL (1-3.4); LYMPHS% (MANUAL) 14 % (22-44); MONOS#(MANUAL) 1.01 x10^3/uL (0.3-2.7); MONOS% (MANUAL) 10 % (2-9); SEG#(MANUAL) 7.47 x10^3/uL (1.8-6.8); SEGS% (MANUAL) 74 % (42-75)
[2020-12-14 05:43] LABS: <PLATELET ESTIMATE> ADEQUATE; <PLT MORPHOLOGY> NORMAL PLT MORPH; ANISOCYTOSIS 1+; CRENATED 1+; HYPOCHROMIA 1+; OVALOCYTES 1+
[2020-12-14 06:56] VITALS: BP 145/89
[2020-12-14] MEDS: INSULIN REGULAR LOW DOSE QDAY SQ-INSULIN SCH (07:09)
[2020-12-14] MEDS: ENOXAPARIN 40 MG/0.4 ML SQ SCH (08:11)
[2020-12-14] MEDS: FERROUS SULFATE 325 MG TABLET PO SCH (08:11)
[2020-12-14] MEDS: NICOTINE 21 MG/24 HR PATCH.TD24 TD SCH (08:11)
[2020-12-14 12:17] VITALS: BP 140/88
[2020-12-14] MEDS: CEFTRIAXONE 1,000 MG in DEXTROSE 5% 50 ML IVPB SCH (15:17)
[2020-12-14] MEDS ORDERED: FILTER, DISP 1.2 MICRON FOR TPN/PVN IV PRN (17:00)
[2020-12-14] MEDS ORDERED: AMINO ACIDS 10% IV SCH (17:00)
[2020-12-14] MEDS ORDERED: SMOF TPN IV SCH (17:00)
[2020-12-14] MEDS ORDERED: FAT EMUL IV SCH (17:00)
[2020-12-14] MEDS ORDERED: DEXTROSE 70% IV SCH (17:00)
[2020-12-14] MEDS ORDERED: [UNRECOGNIZED DRUG - OTHER] IV SCH (17:00)
[2020-12-14 18:29] VITALS: BP 113/76
[2020-12-15 02:24] VITALS: BP 145/83
[2020-12-15] MEDS: PANTOPRAZOLE 40MG TABLET PO SCH (05:12)
[2020-12-15] MEDS: METRONIDAZOLE PMX 500MG/100ML 100 ML IV SCH ×3 (05:12→21:21)
[2020-12-15 05:50] LABS: BASOPHILS % (AUTO) 1 % (0-1); EOSINOPHILS % (AUTO) 3 % (1-7); LYMPHOCYTES % (AUTO) 18 % (22-44); MEAN CORPUSCULAR HEMOGLOBIN 27.5 pg (27.5-34.5); MEAN CORPUSCULAR HGB CONC 31.7 g/dL (33.2-36.2); MEAN PLATELET VOLUME 10.1 fL (7.4-10.4); MONOCYTES % (AUTO) 10 % (2-9); NEUTROPHILS % (AUTO) 69 % (42-75); PLATELET COUNT 301 x10^3/uL (130-400); RED BLOOD COUNT 3.15 x10^6/uL (4.38-5.82)
[2020-12-15 06:30] VITALS: BP 136/82
[2020-12-15 06:38] LABS: MD MORPH REVIEW ONLY
[2020-12-15 06:40] LABS: <PLATELET ESTIMATE> ADEQUATE; <PLT MORPHOLOGY> NORMAL PLT MORPH; ANISOCYTOSIS 2+; HYPOCHROMIA 1+; OVALOCYTES 1+
[2020-12-15] MEDS: INSULIN REGULAR LOW DOSE QDAY SQ-INSULIN SCH (07:19)
[2020-12-15] MEDS: NICOTINE 21 MG/24 HR PATCH.TD24 TD SCH (08:16)
[2020-12-15] MEDS: ENOXAPARIN 40 MG/0.4 ML SQ SCH (08:16)
[2020-12-15 12:32] VITALS: BP 129/88
[2020-12-15] MEDS: HYDROcodone/APAP 5/325 TABLET PO PRN (14:53)
[2020-12-15] MEDS: CEFTRIAXONE 1,000 MG in DEXTROSE 5% 50 ML IVPB SCH (15:28)
[2020-12-15] MEDS ORDERED: FAT EMUL IV SCH (17:00)
[2020-12-15] MEDS ORDERED: FILTER, DISP 1.2 MICRON FOR TPN/PVN IV PRN (17:00)
[2020-12-15] MEDS ORDERED: DEXTROSE 70% IV SCH (17:00)
[2020-12-15] MEDS ORDERED: SMOF TPN IV SCH (17:00)
[2020-12-15] MEDS ORDERED: [UNRECOGNIZED DRUG - OTHER] IV SCH (17:00)
[2020-12-15] MEDS ORDERED: AMINO ACIDS 10% IV SCH (17:00)
[2020-12-15 18:30] VITALS: BP 108/75
[2020-12-16 00:21] VITALS: BP 131/87
[2020-12-16 04:28] LABS: ANION GAP 7 mmol/L (5-15); CALCIUM 8.2 mg/dL (8.5-10.1); CHLORIDE 107 mmol/L (98-107); CREATININE 0.67 mg/dL (0.7-1.3)
[2020-12-16] MEDS: METRONIDAZOLE PMX 500MG/100ML 100 ML IV SCH ×3 (04:55→20:52)
[2020-12-16] MEDS: PANTOPRAZOLE 40MG TABLET PO SCH (04:58)
[2020-12-16 07:00] VITALS: BP 122/83
[2020-12-16] MEDS: FERROUS SULFATE 325 MG TABLET PO SCH (07:25)
[2020-12-16] MEDS: INSULIN REGULAR LOW DOSE QDAY SQ-INSULIN SCH (07:25)
[2020-12-16] MEDS: ENOXAPARIN 40 MG/0.4 ML SQ SCH (07:26)
[2020-12-16] MEDS: NICOTINE 21 MG/24 HR PATCH.TD24 TD SCH (07:27)
[2020-12-16 12:30] VITALS: BP 122/71
[2020-12-16] MEDS: CEFTRIAXONE 1,000 MG in DEXTROSE 5% 50 ML IVPB SCH (15:02)
[2020-12-16 18:42] VITALS: BP 119/82
[2020-12-17 02:47] VITALS: BP 136/88
[2020-12-17] MEDS: METRONIDAZOLE PMX 500MG/100ML 100 ML IV SCH (05:17)
[2020-12-17 05:36] LABS: BASOPHILS % (AUTO) 1 % (0-1); EOSINOPHILS % (AUTO) 3 % (1-7); LYMPHOCYTES % (AUTO) 17 % (22-44); MEAN CORPUSCULAR HEMOGLOBIN 27.8 pg (27.5-34.5); MEAN CORPUSCULAR HGB CONC 32.2 g/dL (33.2-36.2); MEAN PLATELET VOLUME 10.2 fL (7.4-10.4); MONOCYTES % (AUTO) 8 % (2-9); NEUTROPHILS % (AUTO) 71 % (42-75); PLATELET COUNT 315 x10^3/uL (130-400); RED BLOOD COUNT 2.97 x10^6/uL (4.38-5.82); RED CELL DISTRIBUTION WIDTH 24.5 % (9.4-14.8)
[2020-12-17 05:38] LABS: ANION GAP 5 mmol/L (5-15); CALCIUM 8.1 mg/dL (8.5-10.1); CHLORIDE 109 mmol/L (98-107); CREATININE 0.64 mg/dL (0.7-1.3)
[2020-12-17 06:35] LABS: MD MORPH REVIEW ONLY
[2020-12-17 06:36] LABS: ANISOCYTOSIS 1+; HYPOCHROMIA 1+; OVALOCYTES 1+
[2020-12-17 06:37] LABS: <PLATELET ESTIMATE> ADEQUATE; <PLT MORPHOLOGY> NORMAL PLT MORPH
[2020-12-17] MEDS: PANTOPRAZOLE 40MG TABLET PO SCH (06:40)
[2020-12-17 06:55] VITALS: BP 132/81
[2020-12-17] MEDS: NICOTINE 21 MG/24 HR PATCH.TD24 TD SCH (08:56)
[2020-12-17] MEDS: ENOXAPARIN 40 MG/0.4 ML SQ SCH (09:05)
[2020-12-17] MEDS ORDERED: PANT40TA6 PO (11:37)
[2020-12-17] MEDS ORDERED: FERR-36 PO (11:37)
== END 2020-12-17 13:28 | disposition home or self-care (01) | DRG 329 ==
LOC: ED 14:53 → EDIP 15:29 → 3N 16:37 → 4NW 12-04 22:25 → DCLOUNGE 12-17 13:15
PROVIDERS: ADMIT Internal Medicine; ATTEND Internal Medicine
PROC: 30233N1 Transfusion of Nonautologous Red Blood Cells into Peripheral Vein, Percutaneous Approach (ICD-10-PCS; 2020-12-02)
PROC: 0DB58ZX Excision of Esophagus, Via Natural or Artificial Opening Endoscopic, Diagnostic (ICD-10-PCS; 2020-12-03)
PROC: 0DBL8ZX Excision of Transverse Colon, Via Natural or Artificial Opening Endoscopic, Diagnostic (ICD-10-PCS; 2020-12-03)
PROC: 0FT40ZZ Resection of Gallbladder, Open Approach (ICD-10-PCS; 2020-12-05)
PROC: 0WBH0ZX Excision of Retroperitoneum, Open Approach, Diagnostic (ICD-10-PCS; 2020-12-05)
PROC: 0DBL8ZX Excision of Transverse Colon, Via Natural or Artificial Opening Endoscopic, Diagnostic (ICD-10-PCS; 2020-12-05)
PROC: 0DTF0ZZ Resection of Right Large Intestine, Open Approach (ICD-10-PCS; principal; 2020-12-05 16:00)
PROC: 02HV33Z Insertion of Infusion Device into Superior Vena Cava, Percutaneous Approach (ICD-10-PCS; 2020-12-06)
PROC: B548ZZA Ultrasonography of Superior Vena Cava, Guidance (ICD-10-PCS; 2020-12-06)
DX: C18.2 Malignant neoplasm of ascending colon (principal); E43 Unspecified severe protein-calorie malnutrition; J18.9 Pneumonia, unspecified organism; N17.0 Acute kidney failure with tubular necrosis; C18.3 Malignant neoplasm of hepatic flexure; D62 Acute posthemorrhagic anemia; J98.11 Atelectasis; R64 Cachexia; Z20.822 Contact with and (suspected) exposure to COVID-19; F10.20 Alcohol dependence, uncomplicated; F12.90 Cannabis use, unspecified, uncomplicated; F17.210 Nicotine dependence, cigarettes, uncomplicated; G89.29 Other chronic pain; H70.93 Unspecified mastoiditis, bilateral; J32.1 Chronic frontal sinusitis; J32.2 Chronic ethmoidal sinusitis; J32.0 Chronic maxillary sinusitis; K20.90 Esophagitis, unspecified without bleeding; K57.30 Diverticulosis of large intestine without perforation or abscess without bleeding; K64.4 Residual hemorrhoidal skin tags; K64.8 Other hemorrhoids; M19.90 Unspecified osteoarthritis, unspecified site; L53.9 Erythematous condition, unspecified; M85.80 Other specified disorders of bone density and structure, unspecified site; Z66 Do not resuscitate; Z80.0 Family history of malignant neoplasm of digestive organs; Z86.73 Personal history of transient ischemic attack (TIA), and cerebral infarction without residual deficits; Z80.1 Family history of malignant neoplasm of trachea, bronchus and lung; Z85.038 Personal history of other malignant neoplasm of large intestine; Z79.899 Other long term (current) drug therapy; Z79.891 Long term (current) use of opiate analgesic; Z79.01 Long term (current) use of anticoagulants; Z68.21 Body mass index [BMI] 21.0-21.9, adult; Z83.3 Family history of diabetes mellitus; Z84.89 Family history of other specified conditions
CPT/HCPCS: 36415; 70100; 74018; 74240; 96365; 96375; 96376; 99285; J3475; S0020; 36573; 70553; 71260; 72131; 74160; 74177; 80048; 80053; 82378; 82728; 82962; 83540; 83550; 83605; 83690; 83735; 84100; 84134; 84478; 85014; 85018; 85025; 85730; 86850; 86900; 86923; 87040; 87324; 87635; 88304; 88305; 88307; 88331; 88341; 88342; 93005; G0378; J0171; J0610; J0690; J0696; J1170; J1650; J1750; J1756; J1885; J2250; J2270; J2405; J2704; J2710; J3010; J3480; P9047; Q0162; Q9967; A9575; C1751; C1765; C9113; J0330; J2060; J3420; J7050; J7120; P9016

== ENCOUNTER 2021-03-23 09:04 | Day surgery (SDC) | payer SELFPAY ==
[~2021-03-23] VITALS: Ht 175.3 cm; Wt 66.6 kg
[~2021-03-23 09:04] MED LIST: FERR-36 PO; PANT40TA6 PO
[2021-03-23 09:27] VITALS: BP 173/111
[2021-03-23] MEDS ORDERED: SODIUM CHLORIDE 0.9% 1,000 ML IV SCH (10:00)
[2021-03-23] MEDS ORDERED: CEFAZOLIN PMX 1GM/50ML 50 ML ONE (10:46)
[2021-03-23] MEDS ORDERED: LIDOCAINE 1%, 20ML ONE (10:59)
[2021-03-23] MEDS ORDERED: CEFAZOLIN PMX 1GM/50ML 50 ML IV ONE (11:00)
[2021-03-23] MEDS ORDERED: MIDAZOLAM 1 MG/ML, 5ML ONE ×2 (11:12)
[2021-03-23] MEDS ORDERED: FENTANYL PF 100 MCG/2ML ONE (11:12)
[2021-03-23] MEDS ORDERED: NALOXONE 1 MG/ML, 2ML ONE (11:13)
[2021-03-23] MEDS ORDERED: FLUMAZENIL 0.1 MG/1 ML, 5ML ONE (11:13)
== END 2021-03-23 12:50 | disposition home or self-care (01) ==
LOC: RAD 09:04
PROVIDERS: ATTEND Specialist
DX: C18.3 Malignant neoplasm of hepatic flexure (principal); D64.9 Anemia, unspecified; I10 Essential (primary) hypertension; E11.9 Type 2 diabetes mellitus without complications; E78.5 Hyperlipidemia, unspecified; F17.210 Nicotine dependence, cigarettes, uncomplicated; Z79.899 Other long term (current) drug therapy; Z98.890 Other specified postprocedural states; Z80.1 Family history of malignant neoplasm of trachea, bronchus and lung
CPT/HCPCS: 36561; 76937; 77001; 99156; 99157; C1788; J0690; J1642; J2250; J3010; J7030; J2310